=== PATIENT | female | born 1950 | race Caucasian/White ===

== ENCOUNTER → 2018-02-16 10:35 | Outpatient (CLI) | payer OTHER, SELFPAY ==
--- NOTE | 2018-02-16 10:44 | RAD_ITS ---
STUDY: X-RAY - ABDOMEN/PELVIS REASON FOR EXAM: Female, 68 years old. Constipation for 1 week. Pain. TECHNIQUE: Single AP view of the abdomen / pelvis. COMPARISON: None. FINDINGS: Normal visualized lung bases. There is an unremarkable bowel gas pattern with air seen to the level of the rectosigmoid.. There is no demonstrated free abdominal air. The visualized liver, spleen and kidneys are grossly normal in size and morphology. Normal soft tissue structures. Normal visualized osseous structures. RAD/Abdomen Single View IMPRESSION: Normal x-ray examination of the abdomen and pelvis. Electronically Signed: Juwan López MD at 11:22 EST , Service support ,
== END ==
PROVIDERS: Family Provider Internal Medicine; PCP Internal Medicine; Referring Provider Family Medicine; Visit Provider Family Medicine
DX: K59.04 Chronic idiopathic constipation (principal)
CPT/HCPCS: 74018

== ENCOUNTER 2018-08-08 09:06 | Observation (INO) | payer MEDICARE, SELFPAY ==
[2018-08-08] VITALS (10 sets, daily range): BP systolic 112–150; BP diastolic 55–94; PULSE 57–75; RESP 12–18; TEMP 36.8–37.1; O2SAT 95–100; BMI 21.2; BMI 21.4; BMI 21.5
--- NOTE | 2018-08-08 09:45 | EKG12_ITS ---
Test Reason : FATIGUE Blood Pressure : / mmHG Vent. Rate : 060 BPM Atrial Rate : 060 BPM P-R Int : 140 ms QRS Dur : 078 ms QT Int : 410 ms P-R-T Axes : 065 -22 046 degrees QTc Int : 410 ms Normal sinus rhythm Normal ECG Confirmed by DONTE TOM, NOHEMI ([id number]), acquisition editor SHARAD ANDRE ([id number]) on 08/10/2018 9:17:59 AM Referred By: MIHAI Confirmed By:NOHEMI KENT MD
--- NOTE | 2018-08-08 09:48 | RAD_ITS ---
STUDY: X-RAY CHEST REASON FOR EXAM: Female, 68 years old. Chest pain and fatigue. TECHNIQUE: Single AP portable view of the chest. COMPARISON: None. FINDINGS: Hyperinflation. The lungs are clear. There is no demonstrated pleural abnormality. Normal size heart. Normal mediastinum and fabiola. Normal visualized pulmonary arteries. Normal visualized aortic arch and descending thoracic aorta. There are degenerative changes of the visualized thoracic spine. Normal visualized ribs, clavicles, and shoulders. There is no demonstrated abnormality of the visualized soft tissue structures of the upper abdomen. RAD/Chest 1 View (Portable) IMPRESSION: Hyperinflation. Electronically Signed: Álvaro Atkins, at 10:40 EDT , Service support ,
[2018-08-08] MEDS: 0.9% Normal Saline 1,000 ML 150 ML IV (10:08)
[2018-08-08] MEDS: Aspirin 81 MG TAB.CHEW 324 MG PO (10:08)
[2018-08-08 10:18] LABS: Absolute Lymphocyte Count 1.43 X10^3/ul (0.83-4.51); Absolute Neutrophil Count 4.8 X10^3/uL (2.0-7.7); Basophil# 0.01 X10^3/uL; Basophil% 0.1 % (0-1); Eosinophil# 0.16 X10^3/uL; Eosinophils% 2.3 % (0-5); Hematocrit 41.4 % (37-47); Hemoglobin 14.3 g/dl (12.0-15.0); Lymphocyte # 1.43 X10^3/ul (4.0); Lymphocyte % 20.4 % (19-41); Mean Corp Hgb Conc 34.5 g/gl (32-36); Mean Corpuscular Hgb 31.8 pg (27.0-32.0); Mean Corpuscular Volume 92.2 fL (81-99); Mean Platelet Vol. 9.8 fl (6.2-12.0); Monocyte# 0.56 X10^3/uL; Neutrophil # 4.83 X10^3/uL (2.7-7.7); Neutrophil % 69.1 % (47-70); POSITIVE COUNT NO; POSITIVE DIFFERENTIAL NO; POSITIVE MORPHOLOGY NO; Platelet Count 214 K/mm3 (150-450); RBC Distribution Width CV 12.9 % (11.6-14.6); RBC Distribution Width SD 43.1 fl (35.1-43.9); Red Blood Count 4.49 M/mm3 (4.2-5.4)
[2018-08-08 10:36] LABS: Anion Gap 5 (5-15); BUN 14 mg/dL (7-18); BUN/Creat Ratio 15.3 RATIO (10-20); Chloride 102 mmol/L (98-107); Creatinine, Serum 0.92 mg/dL (0.55-1.02); EST Glomerular Filtration Rate 65 mL/min (>60); Est Glom Filt Rate - Afr Amer 79 mL/min (>60); Estimated Creatinine Clearance 59.49 ml/min; Glucose 98 mg/dL (74-106); Potassium 3.7 mmol/L (3.5-5.1); Sodium Level 135 mmol/L (136-145)
--- NOTE | 2018-08-08 10:46 | ED.VISSUMM ---
- ER Visit Summary Date of Service: 08/08/18 Chief Complaint: Fatigue History of Present Illness: The patient is a [address] Peña. She reports that 11 PM 2 days ago she had an episode of chest pain while she was at rest. It was a dull pain is 5-10 at worst and she is pain-free currently. It lasted minutes. Did not seem to worsen with exertion. It was not pleuritic. It decreased with sitting up. There is no associated nausea, vomiting, diaphoresis, shortness of breath. 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 States that yesterday she went out and planted ty and was very fatigued following this. In fact she states that she was unable to make it back up to her house. She crawled to her car and laid down to rest. She denied any chest pain or shortness of breath during that episode. However, she reports that she felt fine when she was sitting or laying down. Patient also reports that she has a sore throat that began 2 days ago. States it was 10 out of 10 at worst. Is now 3 out of 10 severity. Is worsened by swallowing and relieved by hot tea. She was seen in urgent care and had a negative rapid strep. She does report that she had subjective fever and chills. Physical Examination: Vitals: Stable. Afebrile. General: Well-nourished and well-developed. Head: Normocephalic atraumatic. HEENT: Pharyngeal erythema. No tonsillar exudate or enlargement. Neck: Supple, no lymphadenopathy. No JVD. Nontender. Cardiovascular: Regular rate and rhythm. No murmurs. Respiratory: No respiratory distress. Clear to auscultation bilaterally. Abdominal: Soft, nontender, nondistended, normal bowel sounds. No guarding, rebound, or peritoneal signs. Back: Nontender. Extremities: Nontender, no edema. Skin: Normal color, no rash. Neurologic: Alert and oriented ?3. Cranial nerves II through XII are intact. Normal strength and sensation. Psych: Normal affect.. Test Results: EKG is sinus at 60 with no acute changes. There is no old EKG for comparison. Troponin is negative. Chem-7 shows a sodium of 135. CBC is normal. Chest x-ray shows no acute disease. Emergency Department Course and Treatment: Patient is resting comfortably while in emergency department. She was given a dose of aspirin. She had no chest pain while here. Treatment Plan: The patient was discussed with Dr. Pierson. She will be admitted to the hospital for further evaluation and treatment. Disposition: Admitted in stable condition. Impression: 1. Atypical chest pain. 2. Fatigue. 3. Pharyngitis. 4. STEPHANIE score of 1. This note was generated with [employer] dictation software. It may contain incorrect words, spelling, and punctuation that were not noted in review of the chart prior to signing ED Disposition - Plan for ED Patient: Referrals: Adilene Peña MD [Primary Care Provider] -
--- NOTE | 2018-08-08 11:14 | PCM.HP.STD ---
History of Present Illness Date of Admission: 08/08/18 Chief Complaint: Chest pain. The patient is a 68 year old F with no significant past medical history presented to the emergency room because of chest pain. Her symptoms of chest pain started last night when she was about to go to bed, retrosternal chest pain, described as muscle pull, 4-5 out of 10 in severity, not radiating, no associated symptoms and no aggravating or relieving factors. She denied associated shortness of breath, palpitation, dizziness, sweating, lightheadedness, nausea or vomiting. She states that yesterday morning, she went shopping and she went back home, started planting at her guardian and she felt very fatigued and tired which is very unusual to her. She took a nap and she felt a little bit better. Later, she went to her car and again and she was working and engaged felt that she is very tired and weak which is very unusual as she is very active person. Yesterday, she had severe sore throat for which she went to urgent care and no prescriptions given because apparently her strep throat is negative. In the emergency department, her vital signs are stable. Her routine blood work was unremarkable. EKG revealed normal sinus rhythm, normal CT interval, normal QRS, normal QTC, no acute ischemic changes. Troponin is negative. Chest x-ray showed hyperinflation, no acute findings. She is being admitted for chest pain for evaluation. 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 Review of Systems Constitutional: Reports: Weakness, Fatigue. Denies: Anorexia, Chills, Fever, Night Sweats Eyes: Denies: Blurred vision, Double vision, Drainage, Redness, Vision Change HEENT: Denies: Difficulty Hearing, Ear Pain, Eye Pain, Nasal Congestion, Sore Throat Cardiovascular: Reports: Chest Pain, Chest Pressure. Denies: Edema, Heaviness, Light Headedness, Orthopnea, Palpitations, Paroxysmal Noc. Dyspnea, Syncope Respiratory: Denies: Cough, Hemoptysis, Pleuritic Pain, Shortness of Breath, Sputum production, Wheezing Gastrointestinal: Denies: Abdominal Pain, Constipation, Diarrhea, Nausea, Vomiting Genitourinary: Denies: Dysuria, Frequency, Hematuria Musculoskeletal: Denies: Arm Pain, Back Pain, Foot Pain Skin: Denies: Dryness, Rash Neurological: Denies: Balance problems, Blurred vision, Double vision, Change in Speech, Slurred speech, Focal weakness, Headaches, Incoordination Psychiatric: Denies: Anxiety, Depression Endocrine: Denies: Change in Body Habitus, Polydipsia VTE Information - Inpt Only VTE Present on Admission: No VTE Mechan Device Prophylaxis: None VTE Pharm Prophylaxis ordered?: Yes - Physical Exam General: Alert, Oriented x3, Cooperative, No apparent distress HEENT: Atraumatic, EOMI, Normocephalic Oral: Moist Mucosa, No Gingival or Mucosal Lesions/ Ulcerations Neck: Supple, No JVD, Negative Carotid Bruits, Trachea Midline, Thyroid Normal Size and Texture Lungs: Clear to auscultation, Normal air movement, No rhonchi, No wheeze, No rales Cardiovascular: Regular rate, Regular Rhythm, Normal S1, Normal S2, No murmurs, PMI Normal Abdomen: Bowel Sounds Present, Soft, Non Tender, Non-Distended, No Hepato-splenomegaly Extremities: No clubbing, No cyanosis, No edema Skin: No rashes, No breakdown Lymphatic: No Cervical, Supraclavicular, or Inguinal Adenopathy Neurological: Cranial nerves II-XII grossly intact, Motor Exam 5/5 strength throughout Psych/Mental Status: Normal Affect, Appropriate, Alert and oriented to time, place, person, mood and affect Vital Signs Temp Pulse Resp BP Pulse Ox 98.7 F 72 17 150/94 H 100 08/08/18 09:11 08/08/18 10:09 08/08/18 10:09 08/08/18 10:08/08/18 10:09 Oxygen Flow Rate (L/min) 2 Oxygen Delivery Method Nasal Cannula Weight: 140 lb Body Mass Index (BMI) 21.2 Laboratory Tests Past 24 Hrs 08/08/18 08/08/18 10:11 10:11 WBC 7.0 RBC 4.49 Hgb 14.3 Hct 41.4 MCV 92.2 MCH 31.8 MCHC 34.5 RDW 12.9 RDW Differential 43.1 Plt Count 214 MPV 9.8 Immature Gran % (Auto) 0.100 Neut % (Auto) 69.1 Lymph % (Auto) 20.4 [place] % (Auto) 8.0 Eos % (Auto) 2.3 Baso % (Auto) 0.1 Absolute Neuts (auto) 4.8 Absolute Lymphs (auto) 1.43 Total Counted Not Reportable Sodium 135 L Potassium 3.7 Chloride 102 Carbon Dioxide 28.0 Anion Gap 5 BUN 14 Creatinine 0.92 Estim Creat Clear Calc 59.49 Est GFR (MDRD) Af Amer 79 Est GFR (MDRD) Non-Af 65 BUN/Creatinine Ratio 15.3 Glucose 98 Calcium 9.0 Troponin I < 0.015 Clinical Impression(s) from Imaging Studies Chest X-Ray 08/08/18 09:48 IMPRESSION: Hyperinflation. Electronically Signed: Álvaro Atkins, at 10:40 EDT , Service support , Assessment/Plan This is a 68 years old female patient presented to the emergency room because of chest pain and she is being admitted for evaluation. #1 chest pain: Seems to be atypical. She has no risk factors for CAD except her age. This pain is concerning because of preceding fatigue and tiredness following activity. No family history of premature CAD. Initial EKG revealed no acute ischemic changes. Troponin is negative. Chest x-ray showed no acute findings. Her vital signs are stable. Plan: Admit to PCU for observation, cardiac monitoring, serial cardiac enzymes, repeat EKG tomorrow morning, nuclear stress test tomorrow morning if cardiac enzymes are negative, check serum magnesium, sublingual nitroglycerin PRN, IV fluids, IV antiemetics, Tylenol PRN. #2 DVT prophylaxis: Subcu Lovenox. This note was generated with [employer] software. It may contain incorrect words, spelling, and punctuation that were not noted in checking the note before signing. Code Visit OBSV E&M: 77042 Initial observation care L3
--- NOTE | 2018-08-08 11:19 | HP.PCM_ITS ---
History of Present Illness Date of Admission: 08/08/18 Chief Complaint: Chest pain. The patient is a 68 year old F with no significant past medical history presented to the emergency room because of chest pain. Her symptoms of chest pain started last night when she was about to go to bed, retrosternal chest p ain, described as muscle pull, 4-5 out of 10 in severity, not radiating, no associated symptoms and no aggravating or relieving factors. She denied associated shortness of breath, palpitation, dizziness, sweating, lightheadedness, nausea or vomiting. She states that yesterday morning, she went shopping and she went back home, started planting at her guardian and she felt very fatigued and tired which is very unusual to her. She took a nap and she felt a little bit better. Later, she went to her car and again and she was working and engaged felt that she is very tired and weak which is very unusual as she is very active person. Yesterday, she had severe sore throat for which she went to urgent care and no prescriptions given because apparently her strep throat is negative. In the emergency department, her vital signs are stable. Her routine blood work was unremarkable. EKG revealed normal sinus rhythm, normal NM interval, normal QRS, normal QTC, no acute ischemic changes. Troponin is negative. Chest x-ray showed hyperinflation, no acute findings. She is being admitted for chest pain for evaluation. 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 Review of Systems Constitutional: Reports: Weakness, Fatigue. Denies: Anorexia, Chills, Fever, Night Sweats Eyes: Denies: Blurred vision, Double vision, Drainage, Redness, Vision Change HEENT: Denies: Difficulty Hearing, Ear Pain, Eye Pain, Nasal Congestion, Sore Throat Cardiovascular: Reports: Chest Pain, Chest Pressure. Denies: Edema, Heaviness, Light Headedness, Orthopnea, Palpitations, Paroxysmal Noc. Dyspnea, Syncope Respiratory: Denies: Cough, Hemoptysis, Pleuritic Pain, Shortness of Breath, Sputum production, Wheezing Gastrointestinal: Denies: Abdominal Pain, Constipation, Diarrhea, Nausea, Vomiting Genitourinary: Denies: Dysuria, Frequency, Hematuria Musculoskeletal: Denies: Arm Pain, Back Pain, Foot Pain Skin: Denies: Dryness, Rash Neurological: Denies: Balance problems, Blurred vision, Double vision, Change in Speech, Slurred speech, Focal weakness, Headaches, Incoordination Psychiatric: Denies: Anxiety, Depression Endocrine: Denies: Change in Body Habitus, Polydipsia VTE Information - Inpt Only VTE Present on Admission: No VTE Mechan Device Prophylaxis: None VTE Pharm Prophylaxis ordered?: Yes - Physical Exam General: Alert, Oriented x3, Cooperative, No apparent distress HEENT: Atraumatic, EOMI, Normocephalic Oral: Moist Mucosa, No Gingival or Mucosal Lesions/ Ulcerations Neck: Supple, No JVD, Negative Carotid Bruits, Trachea Midline, Thyroid Normal Size and Texture Lungs: Clear to auscultation, Normal air movement, No rhonchi, No wheeze, No rales Cardiovascular: Regular rate, Regular Rhythm, Normal S1, Normal S2, No murmurs, PMI Normal Abdomen: Bowel Sounds Present, Soft, Non Tender, Non-Distended, No Hepato- splenomegaly Extremities: No clubbing, No cyanosis, No edema Skin: No rashes, No breakdown Lymphatic: No Cervical, Supraclavicular, or Inguinal Adenopathy Neurological: Cranial nerves II-XII grossly intact, Motor Exam 5/5 strength throughout Psych/Mental Status: Normal Affect, Appropriate, Alert and oriented to time, place, person, mood and affect Vital Signs Temp Pulse Resp BP Pulse Ox 98.7 F 72 17 150/94 H 100 08/08/18 09:11 08/08/18 10:09 08/08/18 10:09 08/08/18 10:09 08/08/18 10:09 Oxygen Flow Rate (L/min) 2 Oxygen Delivery Method Nasal Cannula Weight: 140 lb Body Mass Index (BMI) 21.2 Laboratory Tests Past 24 Hrs 08/08/18 08/08/18 10:11 10:11 WBC 7.0 RBC 4.49 Hgb 14.3 Hct 41.4 MCV 92.2 MCH 31.8 MCHC 34.5 RDW 12.9 RDW Differential 43.1 Plt Count 214 MPV 9.8 Immature Gran % (Auto) 0.100 Neut % (Auto) 69.1 Lymph % (Auto) 20.4 [place] % (Auto) 8.0 Eos % (Auto) 2.3 Baso % (Auto) 0.1 Absolute Neuts (auto) 4.8 Absolute Lymphs (auto) 1.43 Total Counted Not Reportable Sodium 135 L Potassium 3.7 Chloride 102 Carbon Dioxide 28.0 Anion Gap 5 BUN 14 Creatinine 0.92 Estim Creat Clear Calc 59.49 Est GFR (MDRD) Af Amer 79 Est GFR (MDRD) Non-Af 65 BUN/Creatinine Ratio 15.3 Glucose 98 Calcium 9.0 Troponin I < 0.015 Clinical Impression(s) from Imaging Studies Chest X-Ray 08/08/18 09:48 IMPRESSION: Hyperinflation. Electronically Signed: Álvaro Atkins, at 10:40 EDT , Service support , Assessment/Plan This is a 68 years old female patient presented to the emergency room because of chest pain and she is being admitted for evaluation. #1 chest pain: Seems to be atypical. She has no risk factors for CAD except her age. This pain is concerning because of preceding fatigue and tiredness follow ing activity. No family history of premature CAD. Initial EKG revealed no acute ischemic changes. Troponin is negative. Chest x-ray showed no acute findings. Her vital signs are stable. Plan: Admit to PCU for observation, cardiac monitoring, serial cardiac enzymes, repeat EKG tomorrow morning, nuclear stress test tomorrow morning if cardiac enzymes are negative, check serum magnesium, sublingual nitroglycerin PRN, IV fluids, IV antiemetics, Tylenol PRN. #2 DVT prophylaxis: Subcu Lovenox. This note was generated with [employer] software. It may contain incorrect words, spelling, and punctuation that were not noted in checking the note before signing. Code Visit OBSV E&M: 28288 Initial observation care L3
--- NOTE | 2018-08-08 11:29 | CASEMGMT ---
RN CM Assessment Introduced role of RN CM to patient and patient phil Somers at bedside.? Patient is alert, oriented and able?to participate in RN CM Assessment. ?Care providers, pharmacy, and demographics verified. Presentation: Sore Throat, Fatigue started yesterday morning. Episode of CP, sent from - had a Neg rapid strep there. Admit Dx: CP Re-Admit: No Barriers/Issues: None PCP: Adilene Peña Specialists: None Preferred [facility]acy[facility] Insurance: [facility] Rx Benefit:?Yes LNOK: Phil Valderrama LW/HPOA: No, Would like information Living Arrangements:?Phil Somers stays with her sometimes in her 2 story home, Bedroom on upper level. 3 steps to enter. ADL?s: Independent with ambulation and ADLs Transportation: Drives, drove self to hospital and plans to drive self home upon DC DME: None HHC: None SNF: None Goal: Home and states feels fine now and would like to go home, does not think will have any needs. DC PLAN: Home with needs anticipated at this time. Tong Sinha RNCM
--- NOTE | 2018-08-08 11:39 | EKG12_ITS ---
Test Reason : Blood Pressure : / mmHG Vent. Rate : 058 BPM Atrial Rate : 058 BPM P-R Int : 140 ms QRS Dur : 070 ms QT Int : 432 ms P-R-T Axes : 069 -09 046 degrees QTc Int : 424 ms Sinus bradycardia Otherwise normal ECG No previous ECG's available Confirmed by DONTE TOM, NOHEMI ([id number]), assistant editor SHARAD ANDRE ([id number]) on 08/09/2018 11:55:26 AM Referred By: ZACKERY Confirmed By:NOHEMI KENT MD
[2018-08-09 02:07] VITALS: PULSE 45
[2018-08-09 03:01] VITALS: BP 107/74; PULSE 52; PULSE 64; RESP 9; TEMP 36.7; O2SAT 98
[2018-08-09 05:20] LABS: Absolute Lymphocyte Count 2.18 X10^3/ul (0.83-4.51); Absolute Neutrophil Count 2.7 X10^3/uL (2.0-7.7); Basophil# 0.01 X10^3/uL; Basophil% 0.2 % (0-1); Eosinophil# 0.21 X10^3/uL; Eosinophils% 3.6 % (0-5); Hematocrit 39.3 % (37-47); Hemoglobin 13.3 g/dl (12.0-15.0); Lymphocyte # 2.18 X10^3/ul (4.0); Lymphocyte % 37.1 % (19-41); Mean Corp Hgb Conc 33.8 g/gl (32-36); Mean Corpuscular Hgb 31.3 pg (27.0-32.0); Mean Corpuscular Volume 92.5 fL (81-99); Mean Platelet Vol. 9.7 fl (6.2-12.0); Monocyte# 0.73 X10^3/uL; Monocyte% 12.4 % (0-10); Neutrophil # 2.73 X10^3/uL (2.7-7.7); Neutrophil % 46.5 % (47-70); Platelet Count 194 K/mm3 (150-450); RBC Distribution Width CV 13.1 % (11.6-14.6); RBC Distribution Width SD 43.8 fl (35.1-43.9); Red Blood Count 4.25 M/mm3 (4.2-5.4); White Blood Count 5.9 K/mm3 (4.4-11.0)
[2018-08-09 05:21] LABS: POSITIVE COUNT NO; POSITIVE DIFFERENTIAL NO; POSITIVE MORPHOLOGY NO
[2018-08-09 05:36] LABS: Anion Gap 8 (5-15); BUN 21 mg/dL (7-18); BUN/Creat Ratio 24.9 RATIO (10-20); Calcium,Total 8.7 mg/dL (8.5-10.1); Chloride 109 mmol/L (98-107); Cholesterol 179 mg/dL (200); Creatinine, Serum 0.84 mg/dL (0.55-1.02); EST Glomerular Filtration Rate 72 mL/min (>60); Est Glom Filt Rate - Afr Amer 87 mL/min (>60); Estimated Creatinine Clearance 65.56 ml/min; Glucose 95 mg/dL (74-106); High Density Lipoprotein 63 mg/dL; Potassium 4.6 mmol/L (3.5-5.1); Sodium Level 142 mmol/L (136-145); Triglycerides 58 mg/dL; Very Low Density Lipoprotein 12 mg/dL (5-40)
[2018-08-09 05:48] VITALS: BP 115/61; PULSE 64; RESP 12; TEMP 36.6; O2SAT 98
[2018-08-09 05:50] LABS: International Normalized Ratio 1.1; Prothrombin Time (Protime)PT. 14.2 SECONDS (11.7-14.9)
--- NOTE | 2018-08-09 05:55 | EKG12_ITS ---
Test Reason : AM EKG Blood Pressure : / mmHG Vent. Rate : 055 BPM Atrial Rate : 055 BPM P-R Int : 132 ms QRS Dur : 074 ms QT Int : 428 ms P-R-T Axes : 057 -10 056 degrees QTc Int : 409 ms Sinus bradycardia Otherwise normal ECG When compared with ECG of 08-AUG-2018 11:56, MANUAL COMPARISON REQUIRED, DATA IS UNCONFIRMED Confirmed by SHREYA ORTIZ ([id number]), marketing editor SHARAD ANDRE ([id number]) on 08/13/2018 1:37:54 PM Referred By: JULIAN Confirmed By:NIKKI ORTIZ
[2018-08-09] MEDS: Aspirin E.C. 81 MG Tablet PO (05:56)
[2018-08-09 07:07] VITALS: PULSE 60
[2018-08-09 10:07] VITALS: BP 143/83; PULSE 58; RESP 14; TEMP 36.8; O2SAT 98
--- NOTE | 2018-08-09 11:05 | CASEMGMT ---
SW spoke w/pt and son in room in regard to LW/POA forms. Pt is not ready to complete the forms at this time. SW reviewed forms, gave her the number to the SW dept to call when she is ready to complete the forms and she can set up an appointment to complete the forms. NENITA Flor
--- NOTE | 2018-08-09 11:12 | DCINST_ITS ---
You will use the following diet at home:: Regular Your food should be the consistency of: Regular Discharge Activity: Return to Normal Activity Weight Bearing Status: Full weight bearing Call your doctor if you observe: Fever of 101 or Higher, Shortness of breath, Dizziness, Fainting spells, Chest pain, Increased palpitations (irregular heartbeat), Uncontrolled pain Allergies/Adverse Reactions: Allergies No Known Allergies Allergy (Verified 08/08/18 09:07) Medications to take at Discharge Docusate Sodium [Colace] 100 mg PO DAILY 08/08/18 Magnesium Oxide 400 mg PO BID 08/08/18 Multivitamin [Multivitamins] 1 each PO DAILY 08/08/18 Primary Care Physician: Adilene Peña MD [Primary Care Provider] - Please follow up with your Primary Care Physician in: 2-4 WEEK. Test Results: Test results from this visit will be discussed in further detail at your follow- up appointment, if applicable.
--- NOTE | 2018-08-09 11:52 | STRESSREP ---
Stress Test Report Date: August 09, 2018 Procedure: Exercise tolerance test/imaging study Indications: Chest pain Consent: Per the patient Procedure: The patient exercised on a Jose protocol for 9 minutes achieving a peak heart rate of 130 bpm (84 % predicted maximal heart rate) with a peak blood pressure 168/88 mmHg and a peak MET capacity of 10.1 METs. The baseline ECG demonstrated normal sinus rhythm prior anteroseptal AK. The peak exercise ECG demonstrated sinus tachycardia with about [address] depression in the inferior and lateral leads. EKG during recovery revealed recovery of ST segments to baseline [There were no cardiac dysrhythmias pretest, during exercise, or recovery]. The functional capacity was considered above average for age. There was [no complaint of chest discomfort during exercise or recovery]. The examination was discontinued secondary to achieving target heart rate. Impression: 1. Stress test is[negative] for exercise-induced EKG changes of ischemia 2. The test test negative for exercise-induced chest pain 3. Functional capacity is above average for age 4. Nuclear images pending Myocardial perfusion imaging study: Technique: The patient was injected with 12 mCi of technetium 99m Cardiolite and subsequently rest SPECT Cardiolite nuclear imaging was obtained in the horizontal long, vertical long, and short axis views. The patient exercised on a Jose protocol for 9 minutes achieving a peak heart rate of 130 bpm (84 % predicted maximal heart rate) with a peak blood pressure 168/88 mmHg and a peak MET capacity of 10.1 METs. The patient was injected with 33.7 mCi of technetium 99m Cardiolite and subsequently stress SPECT Cardiolite nuclear imaging was obtained in the horizontal long, vertical long, and short axis views. A gated Cardiolite study at peak stress was obtained. Interpretation: Rest and stress SPECT Cardiolite nuclear imaging status post realignment, normalization, and attenuation correction, demonstrates [normal myocardial radioisotope uptake on stress and rest images]. The gated Cardiolite study demonstrates no regional wall motion abnormalities. The reported LVEF is greater than 70 %. Impression: 1. There is no evidence of significant ischemia or infarction 2. The gated Cardiolite study reports an LVEF of greater than 70%. This note was generated with [employer] software. It may contain incorrect words, spelling, and punctuation that were not noted in checking the note before signing.
--- NOTE | 2018-08-09 12:01 | STRESSREP_ITS ---
Stress Test Report Date: August 09, 2018 Procedure: Exercise tolerance test/imaging study Indications: Chest pain Consent: Per the patient Procedure: The patient exercised on a Jose protocol for 9 minutes achieving a peak heart rate of 130 bpm (84 % predicted maximal heart rate) with a peak blood pressure 168/88 mmHg and a peak MET capacity of 10.1 METs. The baseline ECG demonstrated normal sinus rhythm prior anteroseptal MT. The peak exercise ECG demonstrated sinus tachycardia with about [address] depression in the inferior and lateral leads. EKG during recovery revealed recovery of ST segments to baseline [There were no cardiac dysrhythmias pretest, during exercise, or recovery]. The functional capacity was considered above average for age. There was [no complaint of chest discomfort during exercise or recovery]. The examination was discontinued secondary to achieving target heart rate. Impression: 1. Stress test is[negative] for exercise-induced EKG changes of ischemia 2. The test test negative for exercise-induced chest pain 3. Functional capacity is above average for age 4. Nuclear images pending Myocardial perfusion imaging study: Technique: The patient was injected with 12 mCi of technetium 99m Cardiolite and subsequently rest SPECT Cardiolite nuclear imaging was obtained in the horizont al long, vertical long, and short axis views. The patient exercised on a Jose protocol for 9 minutes achieving a peak heart rate of 130 bpm (84 % predicted maximal heart rate) with a peak blood pressure 168/88 mmHg and a peak MET capacity of 10.1 METs. The patient was injected with 33.7 mCi of technetium 99m Cardiolite and subsequently stress SPECT Cardiolite nuclear imaging was obtained in the horizontal long, vertical long, and short axis views. A gated Cardiolite study at peak stress was obtained. Interpretation: Rest and stress SPECT Cardiolite nuclear imaging status post realignment, normalization, and attenuation correction, demonstrates [normal myocardial radioisotope uptake on stress and rest images]. The gated Cardiolite study demonstrates no regional wall motion abnormalities. The reported LVEF is greater than 70 %. Impression: 1. There is no evidence of significant ischemia or infarction 2. The gated Cardiolite study reports an LVEF of greater than 70%. This note was generated with [employer] software. It may contain incorrect words, spelling, and punctuation that were not noted in checking the note before signing.
--- NOTE | 2018-08-09 13:27 | PCM.DC.SUM ---
Discharge Date and Diagnosis Date of Admission: 08/08/18 Date of Discharge: 08/09/18 - Primary Discharge Diagnosis Chest pain, ACS ruled out. Hospital Course and Treatment Imaging Results: 08/09/18 05:55 Nuclear Stress Test - Treadmil [NM] Routine Clinical Impression(s) from Imaging Studies Chest X-Ray 08/08/18 09:48 IMPRESSION: Hyperinflation. Electronically Signed: Álvaro Atkins, at 10:40 EDT , Service support , Operations: None Procedures: EKG, Stress test Summary of Care Provided: Patient seen and examined on the day of discharge and appeared to be stable to be discharged home. She denies any more chest pain or discomfort. Her vital signs are stable. Repeat EKG revealed sinus bradycardia, heart rate was in the 55, no acute ischemic changes. The patient is a 68 year old F admitted because of an episode of atypical chest pain that was described as pulled muscle preceded by episode of fatigue and weakness and she was admitted for evaluation. Her initial and repeat EKG revealed normal sinus rhythm without evidence of acute ischemic changes or cardiac arrhythmias. Her troponin was negative x3. Chest x-ray showed no acute findings. She had no significant risk factors for CAD and her sister history of hypertrophic obstructive cardiomyopathy. Her routine blood work was unremarkable. her lipid profile was normal. She underwent nuclear stress test that revealed no evidence of stress-induced myocardial ischemia or infarction with preserved ejection fraction. ACS ruled out. Her symptoms attributed to probably musculoskeletal pain versus GERD. Patient discharged home in a stable condition, continued on her previous home medication without any changes, recommended follow-up with PCP in 2 to 4 weeks. - Physical Exam General: Alert, Oriented x3, Cooperative, No apparent distress HEENT: Atraumatic, PERRLA, EOMI, Normocephalic Oral: Moist Mucosa, No Gingival or Mucosal Lesions/ Ulcerations Neck: Supple, No JVD, Negative Carotid Bruits, Trachea Midline, Thyroid Normal Size and Texture Lungs: Clear to auscultation, Normal air movement, No rhonchi, No wheeze, No rales Cardiovascular: Regular rate, Regular Rhythm, Normal S1, Normal S2, PMI Normal Abdomen: Bowel Sounds Present, Soft, Non Tender, Non-Distended, No Hepato-splenomegaly Extremities: No clubbing, No cyanosis, No edema Skin: No rashes, No breakdown Lymphatic: No Cervical, Supraclavicular, or Inguinal Adenopathy Neurological: Cranial nerves II-XII grossly intact, Neuro grossly intact Psych/Mental Status: Normal Affect, Appropriate Vital Signs Temp Pulse Resp BP Pulse Ox 98.2 F 58 L 14 143/83 H 98 08/09/18 10:07 08/09/18 10:07 08/09/18 10:07 08/09/18 10:07 08/09/18 10:07 Oxygen Flow Rate (L/min) 2 Oxygen Delivery Method Room Air Weight: 141 lb 1.533 oz Body Mass Index (BMI) 21.4 Intake and Output for Last 24 Hours 08/07/18 08/08/18 08/09/18 23:59 23:59 23:59 Intake Total 594 / 594 350 / 350 Balance 594 / 594 350 / 350 Laboratory Tests Past 24 Hrs 08/08/18 08/08/18 08/09/18 13:05 16:13 05:05 WBC RBC Hgb Hct MCV MCH MCHC RDW RDW Differential Plt Count MPV Immature Gran % (Auto) Neut % (Auto) Lymph % (Auto) [place] % (Auto) Eos % (Auto) Baso % (Auto) Absolute Neuts (auto) Absolute Lymphs (auto) Total Counted PT INR APTT Sodium 142 Potassium 4.6 Chloride 109 H Carbon Dioxide 25.0 Anion Gap 8 BUN 21 H Creatinine 0.84 Estim Creat Clear Calc 65.56 Est GFR (MDRD) Af Amer 87 Est GFR (MDRD) Non-Af 72 BUN/Creatinine Ratio 24.9 H Glucose 95 Calcium 8.7 Troponin I < 0.015 < 0.015 Triglycerides 58 Cholesterol 179 LDL Cholesterol 104 VLDL Cholesterol 12 HDL Cholesterol 63 08/09/18 08/09/18 05:05 05:05 WBC 5.9 RBC 4.25 Hgb 13.3 Hct 39.3 MCV 92.5 MCH 31.3 MCHC 33.8 RDW 13.1 RDW Differential 43.8 Plt Count 194 MPV 9.7 Immature Gran % (Auto) 0.200 Neut % (Auto) 46.5 L Lymph % (Auto) 37.1 [place] % (Auto) 12.4 H Eos % (Auto) 3.6 Baso % (Auto) 0.2 Absolute Neuts (auto) 2.7 Absolute Lymphs (auto) 2.18 Total Counted Not Reportable PT 14.2 INR 1.1 APTT 34.0 Sodium Potassium Chloride Carbon Dioxide Anion Gap BUN Creatinine Estim Creat Clear Calc Est GFR (MDRD) Af Amer Est GFR (MDRD) Non-Af BUN/Creatinine Ratio Glucose Calcium Troponin I Triglycerides Cholesterol LDL Cholesterol VLDL Cholesterol HDL Cholesterol Discharge Activity: Return to Normal Activity Weight Bearing Status: Full weight bearing Call your doctor if you observe: Fever of 101 or Higher, Shortness of breath, Dizziness, Fainting spells, Chest pain, Increased palpitations (irregular heartbeat), Uncontrolled pain Home Medications: Medications to take at Discharge Docusate Sodium [Colace] 100 mg PO DAILY 08/08/18 Magnesium Oxide 400 mg PO BID 08/08/18 Multivitamin [Multivitamins] 1 each PO DAILY 08/08/18 Primary Care Physician: Adilene Peña MD [Primary Care Provider] - Please follow up with your Primary Care Physician in: 2-4 WEEK. Disposition: Home Minutes spent on discharge:: 22 Patient Condition:: Stable Medical Necessity - Tobacco Use Smoking Status: Never smoker Meaningful Use Info Meaningful Use Diagnoses (Choose all that apply): None applicable Code Visit OBSV E&M: 69048 Observation care discharge
--- NOTE | 2018-08-09 13:31 | DS.PCM_ITS ---
Discharge Date and Diagnosis Date of Admission: 08/08/18 Date of Discharge: 08/09/18 - Primary Discharge Diagnosis Chest pain, ACS ruled out. Hospital Course and Treatment Imaging Results: 08/09/18 05:55 Nuclear Stress Test - Treadmil [NM] Routine Clinical Impression(s) from Imaging Studies Chest X-Ray 08/08/18 09:48 IMPRESSION: Hyperinflation. Electronically Signed: Álvaro Atkins, at 10:40 EDT , Service support , Operations: None Procedures: EKG, Stress test Summary of Care Provided: Patient seen and examined on the day of discharge and appeared to be stable to be discharged home. She denies any more chest pain or discomfort. Her vital signs are stable. Repeat EKG revealed sinus bradycardia, heart rate was in the 55, no acute ischemic changes. The patient is a 68 year old F admitted because of an episode of atypical chest pain that was described as pulled muscle preceded by episode of fatigue and weakness and she was admitted for evaluation. Her initial and repeat EKG revealed normal sinus rhythm without evidence of acute ischemic changes or cardiac arrhythmias. Her troponin was negative x3. Chest x-ray showed no acute findings. She had no significant risk factors for CAD and her sister history of hypertrophic obstructive cardiomyopathy. Her routine blood work was unremarkable. her lipid profile was normal. She underwent nuclear stress test that revealed no evidence of stress-induced myocardial ischemia or infarction with preserved ejection fraction. ACS ruled out. Her symptoms attributed to probably musculoskeletal pain versus GERD. Patient discharged home in a stable condition, continued on her previous home medication without any changes, recommended follow-up with PCP in 2 to 4 weeks. - Physical Exam General: Alert, Oriented x3, Cooperative, No apparent distress HEENT: Atraumatic, PERRLA, EOMI, Normocephalic Oral: Moist Mucosa, No Gingival or Mucosal Lesions/ Ulcerations Neck: Supple, No JVD, Negative Carotid Bruits, Trachea Midline, Thyroid Normal Size and Texture Lungs: Clear to auscultation, Normal air movement, No rhonchi, No wheeze, No ra les Cardiovascular: Regular rate, Regular Rhythm, Normal S1, Normal S2, PMI Normal Abdomen: Bowel Sounds Present, Soft, Non Tender, Non-Distended, No Hepato- splenomegaly Extremities: No clubbing, No cyanosis, No edema Skin: No rashes, No breakdown Lymphatic: No Cervical, Supraclavicular, or Inguinal Adenopathy Neurological: Cranial nerves II-XII grossly intact, Neuro grossly intact Psych/Mental Status: Normal Affect, Appropriate Vital Signs Temp Pulse Resp BP Pulse Ox 98.2 F 58 L 14 143/83 H 98 08/09/18 10:07 08/09/18 10:07 08/09/18 10:07 08/09/18 10:07 08/09/18 10:07 Oxygen Flow Rate (L/min) 2 Oxygen Delivery Method Room Air Weight: 141 lb 1.533 oz Body Mass Index (BMI) 21.4 Intake and Output for Last 24 Hours 08/07/18 08/08/18 08/09/18 23:59 23:59 23:59 Intake Total 594 / 594 350 / 350 Balance 594 / 594 350 / 350 Laboratory Tests Past 24 Hrs 08/08/18 08/08/18 08/09/18 13:05 16:13 05:05 WBC RBC Hgb Hct MCV MCH MCHC RDW RDW Differential Plt Count MPV Immature Gran % (Auto) Neut % (Auto) Lymph % (Auto) [place] % (Auto) Eos % (Auto) Baso % (Auto) Absolute Neuts (auto) Absolute Lymphs (auto) Total Counted PT INR APTT Sodium 142 Potassium 4.6 Chloride 109 H Carbon Dioxide 25.0 Anion Gap 8 BUN 21 H Creatinine 0.84 Estim Creat Clear Calc 65.56 Est GFR (MDRD) Af Amer 87 Est GFR (MDRD) Non-Af 72 BUN/Creatinine Ratio 24.9 H Glucose 95 Calcium 8.7 Troponin I < 0.015 < 0.015 Triglycerides 58 Cholesterol 179 LDL Cholesterol 104 VLDL Cholesterol 12 HDL Cholesterol 63 08/09/18 08/09/18 05:05 05:05 WBC 5.9 RBC 4.25 Hgb 13.3 Hct 39.3 MCV 92.5 MCH 31.3 MCHC 33.8 RDW 13.1 RDW Differential 43.8 Plt Count 194 MPV 9.7 Immature Gran % (Auto) 0.200 Neut % (Auto) 46.5 L Lymph % (Auto) 37.1 [place] % (Auto) 12.4 H Eos % (Auto) 3.6 Baso % (Auto) 0.2 Absolute Neuts (auto) 2.7 Absolute Lymphs (auto) 2.18 Total Counted Not Reportable PT 14.2 INR 1.1 APTT 34.0 Sodium Potassium Chloride Carbon Dioxide Anion Gap BUN Creatinine Estim Creat Clear Calc Est GFR (MDRD) Af Amer Est GFR (MDRD) Non-Af BUN/Creatinine Ratio Glucose Calcium Troponin I Triglycerides Cholesterol LDL Cholesterol VLDL Cholesterol HDL Cholesterol Discharge Activity: Return to Normal Activity Weight Bearing Status: Full weight bearing Call your doctor if you observe: Fever of 101 or Higher, Shortness of breath, Dizziness, Fainting spells, Chest pain, Increased palpitations (irregular heartbeat), Uncontrolled pain Home Medications: Medications to take at Discharge Docusate Sodium [Colace] 100 mg PO DAILY 08/08/18 Magnesium Oxide 400 mg PO BID 08/08/18 Multivitamin [Multivitamins] 1 each PO DAILY 08/08/18 Primary Care Physician: Adilene Peña MD [Primary Care Provider] - Please follow up with your Primary Care Physician in: 2-4 WEEK. Disposition: Home Minutes spent on discharge:: 22 Patient Condition:: Stable Medical Necessity - Tobacco Use Smoking Status: Never smoker Meaningful Use Info Meaningful Use Diagnoses (Choose all that apply): None applicable Code Visit OBSV E&M: 47975 Observation care discharge
== END 2018-08-09 11:12 | disposition home or self-care (01) ==
LOC: ED 10:11 → PCU 11:23
PROVIDERS: Admitting Provider Hospitalist; Emergency Provider Emergency Medicine; Family Provider Family Medicine; PCP Family Medicine; Visit Provider Hospitalist
DX: R07.89 Other chest pain (principal); R00.1 Bradycardia, unspecified; J02.9 Acute pharyngitis, unspecified; R53.83 Other fatigue
CPT/HCPCS: 36415; 71045; 78452; 80048; 80061; 83735; 84484; 85025; 85610; 85730; 93005; 93017; 96360; 96361; 99218; 99285; A9500; J7030; A4216; G0378

== ENCOUNTER → 2019-03-21 12:09 | Outpatient (CLI) | payer MEDICARE, SELFPAY ==
[2018-12-24 13:43] VITALS: BMI 21.2
--- NOTE | 2019-03-21 12:18 | US_ITS ---
STUDY: SUPERFICIAL ULTRASOUND - RIGHT LATERAL CHEST WALL. REASON FOR EXAM: Female, 69 years old. RT LATERAL CHEST , LUMP/SWELLING/PAIN X 1 WEEK TECHNIQUE: A superficial ultrasound was performed with real-time and static green-scale imaging. COMPARISON: None. FINDINGS: Imaging of the right lateral chest wall was obtained with ultrasound. No sonographic abnormality is seen. US/Chest IMPRESSION: No sonographic abnormality is seen. Electronically Signed: Álvaro Atkins, at 15:52 EST , Service support ,
== END ==
PROVIDERS: Family Provider Family Medicine; PCP Family Medicine; Referring Provider Family Medicine; Visit Provider Family Medicine
DX: R07.9 Chest pain, unspecified (principal)
CPT/HCPCS: 76604

== ENCOUNTER → 2020-08-05 12:45 | Outpatient (CLI) | payer MEDICARE, SELFPAY ==
[2018-12-24 13:43] VITALS: BMI 21.2
--- NOTE | 2020-08-05 12:51 | ECHOD_ITS ---
Reason For Study: Abn. EKG Procedure This was a 2D Doppler, Color Flow transthoracic echocardiogram. Exam performed in department. Left Ventricle Normal LV size. Left ventricular systolic function is normal. The estimated ejection fraction is 60 %. Unable to assess diastolic dysfunction due to arrhythmia. No regional wall motion abnormalities noted. Right Ventricle Normal RV size. Normal systolic function. Atria Normal left atrium. Normal right atrium. Normal atrial septum. Mitral Valve Mild mitral valve prolapse. Tricuspid Valve Normal tricuspid valve. Aortic Valve Normal aortic valve. Trisinus/trileaflet aortic valve. Pulmonic Valve Normal pulmonic valve. Great Vessels Normal aortic root. The pulmonary artery is normal size. Normal inferior vena cava. Pericardium/Pleural No pericardial effusion. MMode/2D Measurements & Calculations LVIDd: 4.2 cm IVSd: 0.80 cm Ao root diam: 2.7 cm LVIDs: 2.7 cm LVPWd: 0.87 cm RVDd: 2.5 cm FS: 35.2 % LAV(MOD-bp): 31.4 ml LA A4 area: 12.6 cm2 LA dimension(2D): 3.2 cm LAV(MOD-bp) Indexed: 17.5 ml/m2 LAV(MOD-sp2): 34.4 ml LAV(MOD-sp4): 29.3 ml RA A4 area: 12.9 cm2 Doppler Measurements & Calculations MV E max johnnie: 68.0 cm/sec Lat Peak E' Johnnie: 8.0 cm/sec Med Peak E' Johnnie: 6.1 cm/sec MV A max johnnie: 51.4 cm/sec E/E' lat: 8.5 E/E' med: 11.1 MV E/A: 1.3 Ao V2 max: 113.1 cm/sec LV V1 max: 98.8 cm/sec PA V2 max: 76.6 cm/sec Ao max P.1 mmHg LV V1 max P.9 mmHg ECHO/Echo Complete Interpretation Summary Normal LV size. Left ventricular systolic function is normal. The estimated ejection fraction is 60 %. Unable to assess diastolic dysfunction due to arrhythmia. Mild mitral valve prolapse. Ordering Physician: Adilene Peña Referring Physician: Adilene Peña Performed By: Carol Dominguez RDCS
== END ==
PROVIDERS: PCP Family Medicine; Referring Provider Family Medicine; Visit Provider Family Medicine
DX: I49.3 Ventricular premature depolarization (principal); R00.2 Palpitations; R94.31 Abnormal electrocardiogram [ECG] [EKG]
CPT/HCPCS: 93225; 93226; 93306

== ENCOUNTER 2021-03-08 09:09 | Outpatient (CLI) | payer MEDICARE, SELFPAY | END 2021-03-08 23:59 | disposition short-term general hospital (02) | LOC: VL 03-09 09:09 | PROVIDERS: PCP Family Medicine; Visit Provider Family Medicine | DX: Z20.822 Contact with and (suspected) exposure to COVID-19 (principal) | CPT/HCPCS: 87635; U0003; U0005 ==

== ENCOUNTER → 2021-12-10 | Outpatient (CLI) | payer MEDICARE, SELFPAY ==
--- NOTE | 2021-12-10 17:39 | CT_ITS ---
EXAM: CT ANGIOGRAPHY CHEST WITHOUT AND WITH INTRAVENOUS CONTRAST CLINICAL INDICATION: Covid 2 months ago, continued cough, possible PE TECHNIQUE: Helically acquired angiography images were obtained of the chest without and with intravenous contrast. This CT exam was performed using one or more of the following dose reduction techniques: automated exposure control, adjustment of the mA and/or kV according to patient size, and/or use of iterative reconstruction technique. This report was created using [employer] report generation technology. MIP reconstructed images were created and reviewed. CONTRAST: IV 100mL Isovue-370 RADIATION DOSE: CTDIvol = 6.28 mGy, DLP = 199.44 mGy-cm COMPARISON: None. FINDINGS: PULMONARY ARTERIES: No demonstrated pulmonary embolism or arterial dissection. AORTA: There is atherosclerotic calcification of the aortic arch with tortuosity and elongation of the aortic arch and descending thoracic aorta. Normal in caliber. No evidence of dissection. GREAT VESSELS OF AORTIC ARCH: Unremarkable. Normal in caliber. No evidence of dissection. LUNGS AND PLEURAL SPACES: There are bilateral tree in bud infiltrates in the periphery of the lung. This may suggest a pneumonia, pneumoconioses, or pneumonitis. No mass. No pleural effusion or thickening. HEART: There are calcifications of the coronary arteries. No pericardial effusion. No signs of right heart strain, ratio of right ventricle to left ventricle measures less than 1. MEDIASTINUM: Unremarkable. No mediastinal or hilar adenopathy. Esophagus is unremarkable. No hiatal hernia. THYROID: Unremarkable. No thyroid lesions. BONES/JOINTS: There are degenerative changes of the shoulders. There are multi-level degenerative changes of the thoracic spine. No suspicious lytic or blastic abnormality. CT/CTA Chest W/WO Contrast IMPRESSION: 1. No demonstrated pulmonary embolism or arterial dissection. 2. There are bilateral tree in bud infiltrates in the periphery of the lung. This may suggest a pneumonia, pneumoconioses, or pneumonitis. Electronically Signed: Oh Guevara MD at 18:08 EDT ,
[2021-12-10 18:05] LABS: CREATININE FINGERSTICK < 0.9 mg/dL (0.55-1.02); EGFR FINGERSTICK > 60.0000 mL/min (>60)
== END | disposition home or self-care (01) ==
LOC: CT 17:35
PROVIDERS: PCP Family Medicine; Visit Provider Family Medicine
DX: U09.9 Post COVID-19 condition, unspecified (principal)
CPT/HCPCS: 71275; Q9967

== ENCOUNTER → 2021-12-30 | Outpatient (CLI) | payer MEDICARE, SELFPAY ==
--- NOTE | 2021-12-31 10:24 | PFT ---
INTRODUCTION: The patient is a 71-year-old female that presents for pulmonary function studies secondary to a diagnosis of chronic cough. Respiratory therapy reported good patient effort. Bronchodilators were used during testing. INTERPRETATION: Forced expiration spirometry demonstrates the presence of a moderate large airways obstructive ventilatory defect. There was a significant response to aerosolized bronchodilators. Spirograms are of good quality but do not plateau indicating slow emptying of the lungs. Body plethysmography was performed and demonstrated an elevated RV to 132% of predicted, indicative of underlying air trapping. Diffusing capacity by single breath CO was within normal limits. IMPRESSION: Partially reversible moderate large airways obstructive ventilatory defect with associated air trapping and preserved diffusing capacity.
== END | disposition home or self-care (01) ==
LOC: PSN 09:14
PROVIDERS: PCP Family Medicine; Referring Provider Internal Medicine Critical Care Medicine; Visit Provider Internal Medicine Critical Care Medicine
DX: R05.3 Chronic cough (principal)
CPT/HCPCS: 94060; 94726; 94729

== ENCOUNTER → 2022-02-23 | Outpatient (CLI) | payer MEDICARE, SELFPAY ==
[2022-02-23 11:57] LABS: Absolute Lymphocyte Count 1.68 X10^3/uL (0.83-4.51); Absolute Neutrophil Count 3.3 X10^3/uL (2.0-7.7); Basophil# 0.02 X10^3/uL; Basophil% 0.4 % (0-1); Eosinophil# 0.11 X10^3/uL; Hematocrit 39.5 % (37-47); Hemoglobin 13.2 g/dL (12.0-15.0); Lymphocyte # 1.68 X10^3/ul (0.83-4.51); Lymphocyte % 29.8 % (19-41); Mean Corp Hgb Conc 33.4 g/dL (32-36); Mean Corpuscular Volume 95.9 fL (81-99); Mean Platelet Vol. 9.2 fl (6.2-12.0); Monocyte# 0.48 X10^3/uL; Monocyte% 8.5 % (0-10); NRBC Flagged by Analyzer 0 % (0-5); Neutrophil # 3.34 X10^3/uL (2.7-7.7); Neutrophil % 59.1 % (47-70); Platelet Count 240 K/mm3 (150-450); RBC Distribution Width CV 12.3 % (11.6-14.6); RBC Distribution Width SD 43.7 fl (35.1-43.9); Red Blood Count 4.12 M/mm3 (4.2-5.4); White Blood Count 5.6 K/mm3 (4.4-11.0)
[2022-02-26 13:06] LABS: Aspirgillus flavus Negative (Neg:<1:1); Aspirgillus fumigatus Negative (Neg:<1:1); Aspirgillus niger Negative (Neg:<1:1); Cytoplasmic Ab (C-ANCA) <1:20 titer (Neg:<1:20)
[2022-02-27 12:36] LABS: Immunoglobulin E 13 IU/mL (6-495); Perinuclear Ab (P-ANCA) <1:20 titer (Neg:<1:20)
== END | disposition home or self-care (01) ==
LOC: PAVLAB 11:14
PROVIDERS: PCP Family Medicine; Referring Provider Nurse Practitioner Acute Care; Visit Provider Nurse Practitioner Acute Care
DX: J45.909 Unspecified asthma, uncomplicated (principal)
CPT/HCPCS: 36415; 82785; 85025; 86256; 86606

== ENCOUNTER → 2022-06-10 | Outpatient (CLI) | payer MEDICARE, SELFPAY ==
[2022-06-10 11:54] LABS: Erythrocyte Sedimentation Rate 15 mm/hr (0-30)
[2022-06-10 12:21] LABS: CRP 8.85 mg/L (0.0-3.0); LDH 175 U/L (84-246)
[2022-06-11 14:10] LABS: Anti-Centromere B Ab <0.2 AI (0.0-0.9); Anti-Chromatin <0.2 AI (0.0-0.9); Anti-Jo <0.2 AI (0.0-0.9); Anti-Scleroderma-70 AB <0.2 AI (0.0-0.9); RNP Ab 0.2 AI (0.0-0.9); SJOGREN'S Anti-SS-A test < 0.2 AI (0.0-0.9); SJOGREN'S Anti-SS-B test < 0.2 AI (0.0-0.9); Smith Ab <0.2 AI (0.0-0.9)
[2022-06-12 08:28] LABS: Anti-dsDNA Ab <1 IU/mL (0-9)
[2022-06-13 16:09] LABS: Endomysial Antibody IgA Negative (Negative)
[2022-06-13 19:07] LABS: Angiotensin Convert Enzyme 42 U/L (14-82); Cytoplasmic Ab (C-ANCA) <1:20 titer (Neg:<1:20); Immunoglobulin A 319 mg/dL (64-422); Immunoglobulin E 16 IU/mL (6-495); Immunoglobulin G 1127 mg/dL (586-1602); QNTFERON TB Mitogen Value > 10.00 IU/mL (.); QNTFERON TB Nil Value 0.05 IU/mL (.); QNTFERON TB1+ Ag Value 0.04 IU/mL (.); QNTFERON TB2+ Ag Value 0.04 IU/mL (.)
[2022-06-13 19:42] LABS: Immunoglobulin A 330 mg/dL (64-422); t-Transglutaminase IgA <2 U/mL (0-3)
[2022-06-13 19:45] LABS: Immunoglobulin M 157 mg/dL (26-217); Perinuclear Ab (P-ANCA) <1:20 titer (Neg:<1:20); QNTIFERON TB Positive Criteria Negative (Negative)
== END | disposition home or self-care (01) ==
LOC: LAB 11:23
PROVIDERS: PCP Family Medicine; Referring Provider Internal Medicine Gastroenterology; Visit Provider Internal Medicine Gastroenterology
DX: R05.3 Chronic cough (principal)
CPT/HCPCS: 36415; 82164; 82784; 82785; 83516; 83615; 85652; 86140; 86225; 86235; 86255; 86256; 86480

== ENCOUNTER → 2022-06-21 | Outpatient (CLI) | payer MEDICARE, SELFPAY ==
--- NOTE | 2022-06-21 16:50 | CT_ITS ---
STUDY: CT MAXILLOFACIAL SINUSES REASON FOR EXAM: Female, 72 years old. Sinus drainage. Cough. RADIATION DOSAGE (If Supplied By Facility): CTDIvol = ( 33.06 ) mGy, DLP = ( 776 ) mGycm TECHNIQUE: The patient was scanned in a multi detector CT scanner. High resolution axial imaging was performed without the administration of intravenous contrast material. Sagittal and coronal images were reconstructed. Individualized dose optimization techniques were used for this CT. COMPARISON: None. FINDINGS: FRONTAL SINUSES: Normal aeration, without mucosal inflammatory disease. ETHMOIDAL SINUSES: Normal aeration, without mucosal inflammatory disease. MAXILLARY SINUSES: Normal aeration, without mucosal inflammatory disease. SPHENOIDAL SINUSES: Normal aeration, without mucosal inflammatory disease. There is patency of the bilateral maxillary infundibuli with normal uncinate processes, ethmoid bullae, and hiatus semilunaris. Normal bilateral middle turbinates. Normal bilateral inferior turbinates. Mild nasal septal deviation towards the left side of the midline. There is patency of the bilateral nasal airways. The visualized osseous structures are normal. The visualized bilateral orbital contents are normal. CT/Sinus/Facial Bone IMPRESSION: The sinuses are clear. Mild degree of the nasal septal deviation towards the right side of the midline. Electronically Signed: Álvaro Atkins MD at 9:26 EDT ,
--- NOTE | 2022-06-21 16:50 | CT_ITS ---
STUDY: CTA CHEST REASON FOR EXAM: Female, 72 years old. Pneumonitis. Increase in phlegmon and cough following Covid infection. RADIATION DOSAGE (If Supplied By Facility): CTDIvol = ( 10.1 ) mGy, DLP = ( 356.64 ) mGycm TECHNIQUE: The examination was performed with the intravenous administration of IV 100mL Isovue-370. Post-processing of the angiographic images was performed, with multiplanar reformation and 3D reconstruction. Individualized dose optimization techniques were used for this CT. COMPARISON: Comparison is made with prior study dated December 10, 2021. FINDINGS: Normal enhancement of the main pulmonary artery and right and left pulmonary arteries. Normal enhancement of the bilateral peripheral pulmonary arteries. There is no demonstrated pulmonary embolism. Normal thoracic aorta and visualized great vessels. There is no demonstrated aortic dissection. Normal heart and pericardium. No evidence of coronary artery calcification. Normal mediastinum. Normal hilar regions. Normal visualized trachea and bronchi. The lungs are well expanded. Stable 1.5 signed by 0.7 cm irregular nodular density in the posterior lateral aspect of the right upper lobe abutting the right minor fissure. This is seen on axial image #159. Stable increased linear markings in the posterior aspect of the lingular segment of the left upper lobe as seen on axial image #100 abutting the left major fissure. This most likely represents scarring. Stable linear scar in the anterior aspect of the right lower lobe as seen on axial image #98. Normal pleura. Normal chest wall structures. There are degenerative changes of thoracic spine. Normal visualized upper abdomen. CT/CTA Chest W/WO Contrast IMPRESSION: Stable examination. No acute infiltrate is seen. Electronically Signed: Álvaro Atkins MD at 12:45 EDT ,
[2022-06-21 17:25] LABS: CREATININE FINGERSTICK < 0.9 mg/dL (0.55-1.02); EGFR FINGERSTICK > 60.0000 mL/min (>60)
== END | disposition home or self-care (01) ==
LOC: CT 16:49
PROVIDERS: PCP Family Medicine; Referring Provider Internal Medicine Gastroenterology; Visit Provider Internal Medicine Gastroenterology
DX: J45.909 Unspecified asthma, uncomplicated (principal); R05.3 Chronic cough; J32.9 Chronic sinusitis, unspecified
CPT/HCPCS: 70486; 71275; Q9967

== ENCOUNTER → 2022-10-14 | Outpatient (CLI) | payer MEDICARE, SELFPAY ==
--- NOTE | 2022-10-14 12:56 | RAD_ITS ---
STUDY: X-RAY - LEFT KNEE REASON FOR EXAM: Female, 72 years old. PAIN TECHNIQUE: 4 view(s) of the knee. COMPARISON: None. FINDINGS: Normal visualized distal femur. Normal visualized proximal tibia and fibula. Normal proximal tibiofibular articulation. Degenerative spurs noted on the superior patella Normal medial femorotibial compartment. Normal lateral femorotibial compartment. Normal patellofemoral articulation. The soft tissue structures are unremarkable. RAD/Knee 4 or More Views IMPRESSION: Joint spaces well-preserved, and degenerative spurs noted on the patella. No demonstrated fracture or suspicious osseous lesion Electronically Signed: Kosta Espinoza MD at 14:28 EDT ,
--- NOTE | 2022-10-14 12:56 | RAD_ITS ---
STUDY: X-RAY - RIGHT KNEE REASON FOR EXAM: Female, 72 years old. PAIN TECHNIQUE: 4 view(s) of the knee. COMPARISON: None. FINDINGS: Normal visualized distal femur. Normal visualized proximal tibia and fibula. Normal proximal tibiofibular articulation. No visualized fracture or displaced bony fragment. Normal medial femorotibial compartment. Normal lateral femorotibial compartment. There is moderate to severe narrowing of the lateral patellofemoral compartment with bulky osteophyte formation. There is a soft tissue prominence in the suprapatellar region suggesting a small volume joint effusion. The soft tissue structures are unremarkable. RAD/Knee 4 or More Views IMPRESSION: Degenerative arthrosis. Electronically Signed: Andrew Ricardo MD at 9:07 EDT ,
== END | disposition home or self-care (01) ==
LOC: MTRAD 12:50
PROVIDERS: PCP Family Medicine; Referring Provider Family Medicine; Visit Provider Family Medicine
DX: M25.561 Pain in right knee (principal); M25.562 Pain in left knee
CPT/HCPCS: 73564

== ENCOUNTER 2024-04-24 08:04 | Day surgery (SDC) | payer MEDICARE, SELFPAY ==
--- NOTE | 2024-04-19 12:58 | PAT.ANESEVAL ---
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 When Was Last Pacemaker Check QUESTION #4 FULL TEXT: You/Your Family Experience fever (hyperthermia) with Anesthesia Last Oral Intake Last Oral intake: Last Oral Intake NPO since Meds taken in AM with sips of water? Meds patient instructed to take am of surgery PONV PONV - media production operator: PONV - media production operator Female Yes 04/19/24 11:49 HX of Motion Sickness No 04/19/24 11:49 HX of N/V After Surgery No 04/19/24 11:49 Non-Smoker Yes 04/19/24 11:49 Duration of Surgery greater No 04/19/24 11:49 than 60 minutes Number of Risk Factors 2 04/19/24 11:49 PONV Score Moderate Risk 04/19/24 11:49 Height & Weight Height & Weight: Anesthesia: Height & Weight Height 5 ft 8 in 03/11/24 08:44 Respiratory Assessment Respiratory Assessment - media production operator: Respiratory Tract Infection Hx - media production operator Hx Respiratory Tract Infection No 04/19/24 11:49 STOP Sleep Apnea STOP Sleep Apnea - media production operator: STOP Sleep Apnea - media production operator Hx Hypertension No 04/19/24 11:49 Hx Sleep Apnea No 04/19/24 11:49 CPAP BIPAP Do you snore loudly (louder No 04/19/24 11:49 than talking or can be heard Do you often feel tired/ No 04/19/24 11:49 fatigued/ sleepy during daytime? Has anyone observed you stop No 04/19/24 11:49 breathing during sleep? STOP Results Negative 04/19/24 11:49 QUESTION #5 FULL TEXT : Do you snore loudly (louder than talking or can be heard through closed doors)? 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 Specify any problems Hx of Preganancy in last 3 No 04/19/24 11:49 Months Nurse Filling Out Transfusion DSCHRIBER 04/19/24 11:49 & Questions: Date: 04/19/24 04/19/24 11:49 Time: 11:50 04/19/24 11:49 Patient unable to answer at this time (ie. confused, unrespo /Reproduction History /Reproductive History - media production operator: /Reproductive Hx- media production operator Hx Now No 04/19/24 11:49 Gestational Age (in weeks): EDC: Hx Hx Para Hx Section SAB No 04/19/24 11:49 PFS Medical History (Updated 04/19/24 @ 11:55 by Obdulia Robertson) Wears glasses Post-menopausal Alcohol use Low iron Non-smoker History of rheumatic fever Cardiology follow-up encounter History of Holter monitoring History of stress test History of echocardiogram Hx of colonic polyp Non-sustained ventricular tachycardia (08/05/20) Multiple premature ventricular complexes Home Medications ?Medication ?Instructions ?Recorded ?Last Taken ?Type magnesium oxide 400 mg PO BID CONSTIPATION 08/08/18 08/07/18 18:00 History multivitamin 1 ea PO DAILY SUPPLIMENT 08/08/18 08/07/18 08:00 History cholecalciferol (vitamin D3) 50 50 mcg PO DAILY 02/08/22 Unknown History mcg (2,000 unit) capsule Bacillus coagulans 250 million 1 tab PO DAILY 03/11/24 Unknown History cell chewable tablet (Digestive Advantage Probiotic Gummy) calcium carbonate 500 mg PO QDAY 03/11/24 Unknown History niacinamide 50 mg tablet 50 mg PO BID 03/11/24 Unknown History acyclovir 400 mg tablet 400 mg PO TID PRN PRN cold sores 04/19/24 Unknown History Allergy/AdvReac Type Severity Reaction Status Date / Time No Known Allergies Allergy Verified 04/19/24 11:46 Surgical History (Updated 04/19/24 @ 11:55 by Obdulia Robertson) History of esophagogastroduodenoscopy (EGD) Hx of oral surgery Hx of colonoscopy Social History (Updated 03/11/24 @ 08:35 by Linda Whitfield) household members: none current occupational status: retired Smoking Status: Never smoker substance use type: does not use Audit: Pertinent Findings Pertinent Findings EKG Perinent findings: > 6 months old. Will need repeat 12 SYDNEY Echo (EF%) pertinent findings: Unremarkable. Additional pertinent findings: negative stress test. Holter predates TTE Recommendation Anesthesia Recommendation Anesthesia recommendation: F/U recommended (12 Lead ECG) Follow up Details Cadiac/Pulmonary Imaging Recommendation: Yes Cadiac/Pulmonary Imaging Rec Details: 12 Lead ECG
[2024-04-24] VITALS (9 sets, daily range): BP systolic 97–121; BP diastolic 59–85; PULSE 61–78; RESP 16; TEMP 36.1–36.2; O2SAT 97–100; BMI 22.0
--- NOTE | 2024-04-24 | COLBX_PTH ---
PATIENT: JEFF GALINDO LOC: EN U#:[id number] AGE/SX: 74/F ROOM: RE04/24/[address]: Dr. Leonie Vela MD : 1950 BED: DIS: 04/24/2024 SPEC #: [id number] RECD: 04/24/24 12:23 STATUS: KOJO LEIGHANN #: [id number] YULIANA: 04/24/24 00:[address]: Leonie Vela DEPT: SURGICAL PATHOLOGY RECD BY: Jean-Pierre Garcia ENTERED: 04/24/24 12:23 SP TYPE: COLON BX OTHR DR: Dr. Adilene Peña MD Tissues: A - Ascending colon B - Sigmoid colon biopsy C - Rectum, NOS Procedures: Surgery Specimen Level IV HEADER OPERATION: Colonoscopy and polypectomy PRE-OP DIAGNOSIS: History of colonic polyps TISSUE SUBMITTED: A- Ascending colon polyp x2, B- Sigmoid polyp x2, C- Rectal polyp MICROSCOPIC DIAGNOSIS A. Ascending colon polyp x2, polypectomy: Fragments of tubular adenoma. B. Sigmoid polyp x2, polypectomy: Fragments of hyperplastic polyp. C. Rectal polyp, polypectomy: Hyperplastic polyp. 04/25/2024 MICROSCOPIC DESCRIPTION Slides are reviewed. GROSS DESCRIPTION A. Received in fixative is one container labeled with the patient's name and designated Ascending colon polyp x2. The specimen consists of multiple irregular fragments of light junior soft tissue that in aggregate measure 0.9 x 0.3 x 0.2 cm. The specimen is totally submitted in one cassette. B. Received in fixative is one container labeled with the patient's name and designated Sigmoid polyp x2. The specimen consists of multiple irregular fragments of light junior soft tissue that in aggregate measure 1 x 0.2 x 0.2 cm. The specimen is totally submitted in one cassette. C. Received in fixative is one container labeled with the patient's name and designated Rectal polyp. The specimen consists of one irregular fragment of light junior soft tissue that measures 0.3 x 0.2 x 0.2 cm. The specimen is totally submitted in one cassette. 04/24/2024 TC:1 CPT:25096t0
--- NOTE | 2024-04-24 08:26 | H&P.OPEN ---
[facility] - General General Date of Service: 04/24/24 [facility] Narrative JEFF GALINDO, is a 74 F who presents for screening colonoscopy due to history of colon polyps. Patient's last colonoscopy was a least 10 years ago per patient. Patient did have a complication of what sounds like from an EUS as a did an EGD to have access to pancreatic lesion. Patient states she was just in the hospital longer for this no surgery was needed and this again was about the 10 years ago. Patient has bowel movements daily denies any blood. Patient denies any chronic abdominal pain/nausea/vomiting/reflux. Patient denies any family history of colon cancer. [facility] Medical History (Updated 04/24/24 @ 08:[address] Leonie Vela MD) Wears glasses Post-menopausal Alcohol use Low iron Non-smoker History of rheumatic fever Cardiology follow-up encounter History of Holter monitoring History of stress test History of echocardiogram Hx of colonic polyp Non-sustained ventricular tachycardia (08/05/20) Multiple premature ventricular complexes Home Medications ?Medication ?Instructions ?Recorded ?Last Taken ?Type magnesium oxide 400 mg PO BID CONSTIPATION 08/08/18 08/07/18 18:00 History multivitamin 1 ea PO DAILY SUPPLIMENT 08/08/18 08/07/18 08:00 History cholecalciferol (vitamin D3) 50 50 mcg PO DAILY 02/08/22 Unknown History mcg (2,000 unit) capsule Bacillus coagulans 250 million 1 tab PO DAILY 03/11/24 Unknown History cell chewable tablet (Digestive Advantage Probiotic Gummy) calcium carbonate 500 mg PO QDAY 03/11/24 Unknown History niacinamide 50 mg tablet 50 mg PO BID 03/11/24 Unknown History acyclovir 400 mg tablet 400 mg PO TID PRN PRN cold sores 04/19/24 Unknown History Allergy/AdvReac Type Severity Reaction Status Date / Time No Known Allergies Allergy Verified 04/19/24 11:46 Surgical History (Updated 04/19/24 @ 11:55 by Obdulia Robertson) History of esophagogastroduodenoscopy (EGD) Hx of oral surgery Hx of colonoscopy Social History (Updated 03/11/24 @ 08:35 by Linda Whitfield) household members: none current occupational status: retired Smoking Status: Never smoker substance use type: does not use Past Medical/Surgical History Planned Operation Planned Operative Procedure(s): CSCOPE OA Previous Hospitalizations/Surgeries HX Hospitalizations: No Any Problems With Anesthesia: No You/Your Family Experience Fever (Hyperthermia) With Anes: No Cholinesterase deficiency: No Cardiovascular Hx Chest Pain within Last 2 months: Yes Hx of Irregular Heartbeat and/or Afib: No Hx Heart Attack: No Hx Hypertension: No Hx Cardiac Surgery/Stents/Etc.: No Hx Pain in Legs when Walking/Leg Cramps: No Respiratory Hx Chronic Obstructive Pulmonary Disease (COPD): No Hx Emphysema: No Hx Sleep Apnea: No Hx Respiratory Tract Infection/Cold (presently): No Do You Snore Loudly (louder than talking or can be heard): No Do You Often Feel Tired/ Fatigued/ Sleepy Dring Daytime?: No Has Anyone Observed You Stop Breathing During Sleep?: No Result (for STOP score): Negative Hx Smoking: No Smoking Status: Never smoker Gastrointestinal Hx Gastrointestinal Bleed: No Hx Ulcer: No Hx Unplanned Weight Loss of 20#: No Neurological Hx Seizures: No Hx Multiple Sclerosis: No Hx Parkinson's Disease: No Does patient have nerve stimulator: No Blood Disorder Hx Hepatitis: No Hx Cirrhosis: No Hx Anemia: No Hx Blood Disorders: No Reproduction : No Genitourinary Hx Renal Disease: No Hx Dialysis: No Musculoskeletal Hx Arthritis: Yes Hx Rheumatoid Arthritis: No Endocrine Hx Diabetes: No Thyroid Disease: No Psycho/Social Hx Substance Use: No Hx Alcohol Use: No Hx Anxiety: No Hx Depression: No Hx Dementia: No Miscellaneous Hx Cancer: No Allergies No Known Allergies Allergy (Verified 04/19/24 11:46) Maternal: COPD Paternal: COPD Sibling: - (Sister with history of hypertrophic cardiomyopathy.) Discharge Is Pt Admitted From a Assisted, or a Correction: No After D/C, Where Do you Plan to Go: Return Home From the PAT History Number of Risk Factors: 1 Physical Exam Const alert, oriented x3 and no apparent distress HEENT normocephalic and head/scalp atraumatic Resp normal respiratory effort Cardio regular rate GI soft to palpation and non-tender; Negative for non-distended Palpation: Negative for guarding Extremity no clubbing, cyanosis or edema Skin no rashes or lesions noted Neuro CN's II-XII intact bilaterally Psych mental status grossly normal Assessment & Plan Assessment/Plan (1) Hx of colonic polyp: Surgery Risks - Colonoscopy I discussed with the patient the risks of the procedure: Yes Risks Include but are not Limited To: Risks include but are not limited to: Bleeding, perforation requiring further surgery, inability to complete colonoscopy requiring barium enema.
--- NOTE | 2024-04-24 08:58 | PRE.ANES_ITS ---
ASA Classification* ASA Classification ASA Classification: 3 Assessment & Plan Anesthesia* Anesthesia Assessment Anesthesia Assessment: Discussed sedation and/or anesthesia options, risks, benefits, and alternatives with patient/parents/legal guardian/POA. Questions invited. The patient/parents/legal guardian/POA seems to understand and agrees to proceed with anesthesia plan. Reviewed the physical assessment, medical history, allergy history and patient home medications list prior to surgery/procedure/anesthetic and documented any changes. Performed airway and anesthesia risk assessments. Anesthesia Type Anesthesia Type: MAC History Source History Obtained from:: Patient and Chart Anesthesia Focused Assessment* Temperature: 97.2 F Pulse Rate: 78 Blood Pressure: 121/85 Respiratory Rate: 16 Pulse Ox: 98 Oxygen Delivery Method: Room Air Airway Assessment Mouth opens: >3 cm Mallampati Score: I Teeth Condition: Intact Neck Range of motion (ROM): Full ROM Focused Labs Anesthesia Preop lab: CBC WBC 5.6 K/mm3 (4.4-11.0) 02/23/22 11:50 02/23/22 RBC 4.12 M/mm3 (4.2-5.4) L 02/23/22 11:50 02/23/22 Hgb 13.2 g/dL (12.0-15.0) 02/23/22 11:50 02/23/22 Hct 39.5 % (37-47) 02/23/22 11:50 02/23/22 Plt Count 240 K/mm3 (150-450) 02/23/22 11:50 02/23/22 CHEMISTRY Potassium 4.6 mmol/L (3.5-5.1) 08/09/18 05:05 08/09/18 Sodium 142 mmol/L (136-145) 08/09/18 05:05 08/09/18 Magnesium 2.0 mg/dL (1.6-2.6) 08/08/18 10:11 08/08/18 BUN 21 mg/dL (7-18) H 08/09/18 05:05 08/09/18 Creatinine 0.84 mg/dL (0.55-1.02) 08/09/18 05:05 08/09/18 Glucose 95 mg/dL (74-106) 08/09/18 05:05 08/09/18 COAG PT 14.2 SECONDS (11.7-14.9) 08/09/18 05:05 Pre-Assessment Diagnosis/Proposed Procedure Planned Operative Procedure(s): CSCOPE OA Anesthesia History 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 When Was Last Pacemaker Check QUESTION #4 FULL TEXT: You/Your Family Experience fever (hyperthermia) with Anesthesia Last Oral Intake Last Oral intake: Last Oral Intake NPO since 19:30 04/24/24 08:24 Meds taken in AM with sips of No 04/24/24 08:24 water? 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 Female Yes 04/19/24 11:49 HX of Motion Sickness No 04/19/24 11:49 HX of N/V After Surgery No 04/19/24 11:49 Non-Smoker Yes 04/19/24 11:49 Duration of Surgery greater No 04/19/24 11:49 than 60 minutes Number of Risk Factors 2 04/19/24 11:49 PONV Score Moderate Risk 04/19/24 11:49 Height & Weight Height & Weight: Anesthesia: Height & Weight Height 5 ft 8.11 in 04/24/24 08:24 Weight: 66 kg 04/24/24 08:24 Body Mass Index (BMI) 22.0 04/24/24 08:24 Respiratory Assessment Respiratory Assessment - abrasive water jet cutter operator: Respiratory Tract Infection Hx - abrasive water jet cutter operator Hx Respiratory Tract Infection No 04/24/24 08:28 STOP Sleep Apnea STOP Sleep Apnea - abrasive water jet cutter operator: STOP Sleep Apnea - abrasive water jet cutter operator Hx Hypertension No 04/24/24 08:28 Hx Sleep Apnea No 04/24/24 08:28 CPAP BIPAP Do you snore loudly (louder No 04/24/24 08:28 than talking or can be heard Do you often feel tired/ No 04/24/24 08:28 fatigued/ sleepy during daytime? Has anyone observed you stop No 04/24/24 08:28 breathing during sleep? STOP Results Negative 04/24/24 08:36 QUESTION #5 FULL TEXT : Do you snore loudly (louder than talking or can be heard through closed doors)? 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 Specify any problems Hx of Preganancy in last 3 No 04/19/24 11:49 Months Nurse Filling Out Transfusion DSCHRIBER 04/19/24 11:49 & Questions: Date: 04/19/24 04/19/24 11:49 Time: 11:50 04/19/24 11:49 Patient unable to answer at this time (ie. 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: /Reproductive Hx- abrasive water jet cutter operator Hx Now No 04/24/24 08:28 Gestational Age (in weeks): EDC: Hx Hx Para Hx Section SAB No 04/19/24 11:49 PFSH Medical History Wears glasses Post-menopausal Alcohol use Low iron Non-smoker History of rheumatic fever Cardiology follow-up encounter History of Holter monitoring History of stress test History of echocardiogram Hx of colonic polyp Non-sustained ventricular tachycardia (08/05/20) Multiple premature ventricular complexes Home Medications ?Medication ?Instructions ?Recorded ?Last Taken ?Type magnesium oxide 400 mg PO BID CONSTIPATION 0 08/08/18 08/07/18 18:00 History multivitamin 1 ea PO DAILY SUPPLIMENT 02/1408/07/18 08:00 History cholecalciferol (vitamin D3) 50 50 mcg PO DAILY Unknown History mcg (2,000 unit) capsule Bacillus coagulans 250 million 1 tab PO DAILY 03/11/24 Unknown History cell chewable tablet (Digestive Advantage Probiotic Gummy) calcium carbonate 500 mg PO QDAY 03/11/24 Unkn own History niacinamide 50 mg tablet 50 mg PO BID 03/11/24 Unknow n History acyclovir 400 mg tablet 400 mg PO TID PRN PRN cold s ores 04/19/24 Unknown History Allergy/AdvReac Type Severity Reaction Status Date / Time No Known Allergies Allergy Verified 04/19/24 11:46 Surgical History History of esophagogastroduodenoscopy (EGD) Hx of oral surgery Hx of colonoscopy Social History household members: none current occupational status: retired Smoking Status: Never smoker substance use type: does not use Review of Systems (Anesthesia) ROS Narrative System reviewed and no additional complaints, except as documented. Physical Exam Const alert and oriented x3 HEENT dentition normal Resp normal respiratory effort Neuro oriented x3 and moves all extremities
--- NOTE | 2024-04-24 11:13 | OP.CCLET_ITS ---
04/24/2024 Adilene Peañ [place] [id number] [place] [address] Re : Colonoscopy procedure for Alecia Valderrama Dear Dr. Peña This procedure was performed on Wednesday, April 24, 2024. My impressions and recommendations are as follows: Impressions : - One less than 5 mm polyp in the ascending colon, removed with a hot snare. Resected and retrieved. - The entire examined colon is normal. - Three less than 5 mm polyps in the rectum, in the sigmoid colon and in the ascending colon, removed with a cold biopsy forceps. Resected and retrieved. - The examination was otherwise normal on direct and retroflexion views. Recommendations : - Discharge patient to home. - Resume previous diet. - Continue present medications. - Await pathology results. - Repeat colonoscopy in 5 years for surveillance based on clinical status at that time. My findings are described in the full procedure note, which is enclosed. If I can be of further assistance, please feel free to contact me at Doctor phone number(s): , Work: . Sincerely, MD Leonie Mckay MD 04/24/2024 11:13:14 AM This report has been signed electronically.
--- NOTE | 2024-04-24 11:13 | OP.COLON_ITS ---
Patient Name: Alecia Valderrama Procedure Date: 04/24/2024 10:26 AM Date of : 1950 Age: 74 Procedure: Colonoscopy Indications: High risk colon cancer surveillance: Personal history of colonic polyps Providers: Leonie Vela MD Referring MD: Adilene Peña Medicines: Monitored Anesthesia Care Patient Profile: This is a 74 year old female. Last Colonoscopy: more than 10 years ago. Complications: No immediate complications. Procedure: Pre-Anesthesia Assessment: - Prior to the procedure, a History and Physical was performed, and patient medications and allergies were reviewed. The patient's tolerance of previous anesthesia was also reviewed. The risks and benefits of the procedure and the sedation options and risks were discussed with the patient. All questions were answered, and informed consent was obtained. Prior Anticoagulants: The patient has taken no anticoagulant or antiplatelet agents. ASA Grade Assessment: Per anesthesia. After reviewing the risks and benefits, the patient was deemed in satisfactory condition to undergo the procedure. After I obtained informed consent, the scope was passed under direct vision. Throughout the procedure, the patient's blood pressure, pulse, and oxygen saturations were monitored continuously. The colonoscope was introduced through the anus and advanced to the cecum, identified by the appendiceal orifice, ileocecal valve and palpation. The colonoscopy was performed without difficulty. The patient tolerated the procedure well. The quality of the bowel preparation was good. Scope In: 10:36:07 AM Scope Withdrawal Time 0 hours 20 minutes 23 seconds Scope Out: 11:08:56 AM Total Procedure Duration Time 0 hours 32 minutes 49 seconds Findings: The perianal and digital rectal examinations were normal. A less than 5 mm polyp was found in the ascending colon. The polyp was sessile. The polyp was removed with a hot snare. Resection and retrieval were complete. The entire examined colon appeared normal. Three sessile polyps were found in the rectum, sigmoid colon and ascending colon. The polyps were less than 5 mm in size. These polyps were removed with a cold biopsy forceps. Resection and retrieval were complete. The exam was otherwise without abnormality on direct and retroflexion views. Impression: - One less than 5 mm polyp in the ascending colon, removed with a hot snare. Resected and retrieved. - The entire examined colon is normal. - Three less than 5 mm polyps in the rectum, in the sigmoid colon and in the ascending colon, removed with a cold biopsy forceps. Resected and retrieved. - The examination was otherwise normal on direct and retroflexion views. Recommendation: - Discharge patient to home. - Resume previous diet. - Continue present medications. - Await pathology results. - Repeat colonoscopy in 5 years for surveillance based on clinical status at that time. Procedure Code(s): --- Professional --- 50570, PT, Colonoscopy, flexible; with removal of tumor(s), polyp(s), or other lesion(s) by snare technique 60436, 59, Colonoscopy, flexible; with biopsy, single or multiple Diagnosis Code(s): --- Professional --- Z86.010, Personal history of colonic polyps D12.2, Benign neoplasm of ascending colon D12.8, Benign neoplasm of rectum D12.5, Benign neoplasm of sigmoid colon CPT copyright 2021 [employer]. All rights reserved. The codes documented in this report are preliminary and upon line rider review may be revised to meet current compliance requirements. MD Leonie Mckay MD 04/24/2024 11:13:14 AM This report has been signed electronically. Number of Addenda: 0 Note Initiated On: 04/24/2024 10:26 AM
--- NOTE | 2024-04-24 11:20 | PCM.POST.ANE ---
Anesthesia: Postop Eval I Current Vital Signs Temperature: 97 F Pulse Rate: 71 Blood Pressure: 99/59 Respiratory Rate: 16 Pulse Ox: 97 Oxygen Delivery Method: Room Air Assessment Airway patent: Yes Spontaneous unlabored respirations: Yes Mental status: Asleep nausea: No Vomiting: No Anesthesia Complication: No Fluid Hydration Crystalloid volume administer (ml): 60 Total IV fluid infused: 60 Progress Note Anesthesia document: Postop Eval 1 completed: Yes
--- NOTE | 2024-04-24 15:41 | PCM.POSTANE2 ---
Anesthesia Postop Eval I Sum Postop Eval Completion status Anesthesia document: Postop Eval 1 completed: Yes Anesthesia Postop Eval I Summary Anesthesia Postop Eval I Summary: Anesthesia Postop Eval I: Assessment Summary Airway patent Yes 04/24/24 11:20 [email or web address] Spontaneous unlabored Yes 04/24/24 11:20 [email or web address] respirations Mental status Asleep 04/24/24 11:20 [email or web address] nausea No 04/24/24 11:20 [email or web address] Vomiting No 04/24/24 11:20 [email or web address] Anesthesia Postop Eval I: Fluid Summary Crystalloid volume administer 60 04/24/24 11:20 [email or web address] (ml) Colloids volume administered ( ml) Blood Product volume administered (ml) Total IV fluid infused 60 04/24/24 11:20 [email or web address] Anesthesia Postop Eval I: Summary Notes Anesthesia Complication No 04/24/24 11:20 [email or web address] Anesthesia Complication Comment: Post-operative progress note Anesthesia: Postop Eval II Evaluation Mental status: Awake and Calm Pain Level: 2 nausea: No Vomiting: No Complications Anesthesia Complication: No
== END 2024-04-24 12:31 | disposition home or self-care (01) ==
LOC: EN 08:06 → AC 08:08
PROVIDERS: PCP Family Medicine; Referring Provider Family Medicine; Visit Provider Surgery
PROC: 0DJD8ZZ Inspection of Lower Intestinal Tract, Via Natural or Artificial Opening Endoscopic (ICD-10-PCS; CPT 45378; principal; 2024-04-24 10:10)
DX: Z12.11 Encounter for screening for malignant neoplasm of colon (principal); D12.2 Benign neoplasm of ascending colon; D12.5 Benign neoplasm of sigmoid colon; D12.8 Benign neoplasm of rectum; Z79.899 Other long term (current) drug therapy; Z86.0100 Personal history of colon polyps, unspecified
CPT/HCPCS: 45385; 45380; 88305; A4216; J2405